=== PATIENT | male | born 1965 | race Caucasian/White ===

== ENCOUNTER 2016-09-01 17:58 | Emergency (ER) | payer BC ==
[2016-09-01] MEDS ORDERED: Lidocaine 1% with EPINEPHrine 1:100,000 20 ML MDV INFILT ONE (18:10)
[2016-09-01 18:18] VITALS: BP 148/97
--- NOTE | 2016-09-01 18:19 | EDM.PDOC ---
ED HPI GENERAL MEDICAL PROBLEM - General Chief Complaint: Laceration Stated Complaint: laceration to face Time Seen by Provider: 09/01/16 18:05 Source of Information: Reports: Patient, Family, RN, RN Notes Reviewed History Limitations: Reports: No Limitations - History of Present Illness INITIAL COMMENTS - FREE TEXT/NARRATIVE: Patient presents emergency room at [facility] after he sustained an injury to his face. The patient states that he was working on a piece of farm equipment. The patient states he was trying to fix a bolt with a wrench, and when the wrench slipped and hit the patient on the left maxillary area. The patient denies any LOC. The patient denies any headache. The patient denies any visual field disturbances. The patient denies any mouth or jaw problems. The patient denies any nasal issues. The patient has had previous head injuries from farming accidents in the remote past. Onset: Today Left Face Pain Score (Numeric/FACES): 3 - Related Data Allergies Allergy/AdvReac Type Severity Reaction Status Date / Time No Known Allergies Allergy Verified 09/01/16 18:27 ED ROS GENERAL - Review of Systems Review Of Systems: See Below Constitutional: Denies: Fever, Chills, Weakness HEENT: Reports: Nose Pain Respiratory: Denies: Shortness of Breath, Cough Cardiovascular: Denies: Chest Pain, Palpitations Skin: Reports: Wound (cut to left side of face) Neurological: Denies: Dizziness, Headache ED EXAM, SKIN/RASH Exam: See Below Exam Limited By: No Limitations General Appearance: Alert, No Apparent Distress Eye Exam: Bilateral Eye: EOMI, Normal Inspection, PERRL Nose: Normal Inspection, Normal Mucosa, No Blood Head: Facial Tenderness (left maxillary) Neck: Supple Respiratory/Chest: No Respiratory Distress, Lungs Clear, Normal Breath Sounds Cardiovascular: Regular Rate, Rhythm Neurological: Alert, Oriented Skin: Wound/Incision (Laceration to left maxillary; small grade venous ooze; will require surgical closure for optimal wound healing) ED SKIN PROCEDURES - Laceration/Wound Repair Left Face Lac/wound length in cm: 2.3 Appearance: subcutaneous, linear, clean Distal NVT: neuro & vascular intact Anesthetic Type: local Local anesthesia - Lidocaine (Xylocaine): 1% with epi Skin prep: chlorhexidine (hibiciens), saline Exploration/Debridement/Repair: wound explored, in a bloodless field, explored to base, no foreign material found, wound margins revised Closed with: sutures Suture size: 4-0 # of sutures: 8 Suture type: interrupted, simple Sterile dressing applied: none Tetanus status addressed: Yes Complications: No Course - Vital Signs Last Recorded V/S: Last Vital Signs Temp 36.8 C 09/01/16 18:15 Pulse 74 09/01/16 18:15 Resp 20 09/01/16 18:15 BP 148/97 H 09/01/16 18:15 Pulse Ox 97 09/01/16 18:15 - Orders/Labs/Meds Orders: Active Orders 24 hr Category Date Time Status Vaccines to be Administered [RC] PER UNIT ROUTINE Care 09/01/16 19:08 Ordered Diphth,Pertuss(Acell),Tet Vac [Adacel] Med 09/01/16 19:08 Once 0.5 ml IM .ONCE ONE Meds: Medications Discontinued Medications Generic Name Dose Route Start Last Admin Trade Name Freq PRN Reason Stop Dose Admin Lidocaine/Epinephrine 20 ml 09/01/16 18:10 09/01/16 18:20 Xylocaine 1% With Epinephrine 1:100,000 INFILT 09/01/16 18:11 3 ml ONETIME ONE Administration Departure - Departure Time of Disposition: 19:10 Disposition: Home, Self-Care 01 Condition: good Clinical Impression: Facial laceration Qualifiers: Encounter type: initial encounter Qualified Code(s): S01.81XA - Laceration without foreign body of other part of head, initial encounter - Discharge Information Instructions: Laceration Care, Adult, Facial Laceration, [id number], Sutured Wound Care Referrals: Natanael Park MD [Primary Care Provider] - Forms: ED Department Discharge Additional Instructions: 1. Stay well hydrated and rest 2. Sutures to stay in for 10 days 3. May shower/bathe as usual 4. Do not rub the area 5. See your Primary in 10 days for recheck and possible suture removal - Problem List Review Problem List Initiated/Reviewed/Updated: Yes - My Orders Last 24 Hours: My Active Orders 09/01/16 19:08 Vaccines to be Administered [RC] PER UNIT ROUTINE Diphth,Pertuss(Acell),Tet Vac [Adacel] 0.5 ml IM .ONCE ONE - Assessment/Plan Last 24 Hours: My Active Orders 09/01/16 19:08 Vaccines to be Administered [RC] PER UNIT ROUTINE Diphth,Pertuss(Acell),Tet Vac [Adacel] 0.5 ml IM .ONCE ONE
[2016-09-01] MEDS ORDERED: Diphtheria,Pertussis(Acell),Tetanus Vaccine 0.5 ML Syringe IM ONE (19:08)
== END 2016-09-01 19:20 | disposition home or self-care (01) ==
LOC: VM.ED 17:58
DX: S01.81XA Laceration without foreign body of other part of head, initial encounter (principal); W22.8XXA Striking against or struck by other objects, initial encounter; Y93.9 Activity, unspecified; Y92.79 Other farm location as the place of occurrence of the external cause
CPT/HCPCS: 12011; 12013; 90471; 90715; 99282

== ENCOUNTER 2024-08-23 11:13 | Day surgery (SDC) | payer BC, OTHER ==
[2024-08-23] MEDS: Lactated Ringers 1,000 ML IV SCH (11:28)
[2024-08-23] MEDS ORDERED: fentaNYL 100 MCG/2 ML SDV ONE (12:39)
[2024-08-23] MEDS ORDERED: Midazolam 1 MG/ML 2 ML SDV ONE (12:39)
[2024-08-23] MEDS ORDERED: Propofol 200 MG/20 ML SDV ONE (12:39)
[2024-08-23 13:24] VITALS: BP 148/101; PULSE 80
== END 2024-08-23 13:46 | disposition home or self-care (01) ==
LOC: VM.SDS 11:13
PROVIDERS: ATTEND Surgery
DX: Z12.11 Encounter for screening for malignant neoplasm of colon (principal); R19.5 Other fecal abnormalities; I10 Essential (primary) hypertension; E66.812 Obesity, class 2; E78.2 Mixed hyperlipidemia; Z91.09 Other allergy status, other than to drugs and biological substances; Z79.82 Long term (current) use of aspirin; Z79.899 Other long term (current) drug therapy
CPT/HCPCS: J2250; J2704; J3010; J7120